=== PATIENT | male | born 1985 | race Caucasian/White ===

== ENCOUNTER 2019-09-05 19:19 | Emergency (ER) | payer OTHER, SELFPAY ==
[2019-09-05 19:45] VITALS: BP 116/71; PULSE 79; RESP 16; TEMP 36.8; O2SAT 99
--- NOTE | 2019-09-05 20:09 | ED.LOWEXIN ---
HPI - Extremity Injury (Lower) General Chief Complaint: Extremity Injury, Lower Stated Complaint: Left knee injury Time Seen by Provider: 09/05/19 19:57 Source: patient and RN notes reviewed Mode of arrival: ambulatory Limitations: no limitations History of Present Illness HPI Narrative: Patient presents today complaining of left knee pain. He injured his knee last night while he was wrestling with his children. States it twisted underneath him. He has intermittent sharp pains to the medial knee with ambulation. At rest he states he is pain-free. Denies numbness or tingling in the leg or foot. He has been taking Tylenol without relief. complaint: knee injury Related Data Allergies Allergy/AdvReac Type Severity Reaction Status Date / Time No Known Allergies Allergy Verified 09/05/19 19:47 Review of Systems Review of Systems: Narrative: CONSTITUTIONAL: Denies body aches, fever, chills, or sweats. EYES: Denies visual changes, redness, or discharge. ENT: Denies rhinorrhea, congestion, sore throat, or otalgia. CARDIOVASCULAR: Denies chest pain, palpitations, or edema. RESPIRATORY: Denies cough or dyspnea. GASTROINTESTINAL: Denies abdominal pain, nausea, vomiting, or diarrhea. GENITOURINARY: Denies dysuria or hematuria. SKIN: Denies rash, itching, or wounds. MUSCULOSKELETAL: Denies back pain, or myalgia.+ Left knee pain NEUROLOGIC: Denies headache, numbness, tingling, or weakness. PSYCH: Denies depression or anxiety. PMFSH Social History Social History Gender identity (if verbalized by the patient): Male Comments At time of signature, I have reviewed and agree with nursing past medical, surgical, social and family history unless otherwise noted. Please see nursing chart for further information. There is no relevant family history pertinent to the presenting complaint Exam Narrative: Exam Narrative: GENERAL: Well-appearing, well-nourished, and in no acute distress. HEAD: Normocephalic, atraumatic. EYES: EOMI. No redness or drainage. Conjunctivae normal. ENT: Mucous membranes pink and moist. NECK: Normal AROM. CHEST: No respiratory distress. EXTREMITIES: Left knee: Point tenderness to the medial joint line. Pain with internal and external rotation. No edema, effusion. No bony tenderness noted to the patella. No tenderness to the patellar tendon. Distal sensation intact. Capillary refill normal. Pedal pulse normal. SKIN: Warm, dry, no rash. NEURO: No focal deficits. Alert and oriented x3. Gait steady. PSYCH: Normal affect. No signs of depression or anxiety. Course Vital Signs Vital signs: Vital Signs Temperature 98.2 F 09/05/19 19:45 Pulse Rate 79 09/05/19 19:45 Respiratory Rate 16 09/05/19 19:45 Blood Pressure 116/71 09/05/19 19:45 Pulse Oximetry 99 09/05/19 19:45 Temperature 98.2 F 09/05/19 19:45 Pulse Rate 79 09/05/19 19:45 Respiratory Rate 16 09/05/19 19:45 Blood Pressure 116/71 09/05/19 19:45 Pulse Oximetry 99 09/05/19 19:45 Review MDM - Extremity Injury (Lower) Differential Diagnosis Differential diagnosis: Likely other (Knee sprain, meniscus tear, ligamental injury) Critical Care Time Critical Care Time Critical Care Time: No Discharge Plan Discharge Clinical Impression: Left knee sprain Qualifiers: Encounter type: initial encounter Involved ligament of knee: unspecified ligament Qualified Code(s): S83.92XA - Sprain of unspecified site of left knee, initial encounter Patient Disposition: Home, Self-Care Condition: Stable Instructions: Knee Sprain (DC) Additional Instructions: Please take the ibuprofen and apply ice at home. Consider an Karri wrap when you are up and walking. Follow-up with your doctor in 1 to 2 weeks if symptoms are not improving. Patient Language: Armenian Prescriptions: New ibuprofen 800 mg tablet 800 mg PO TID Qty: 30 RF: 0 Interventions: Discharge Disposition Last Done: 09/05/19 20:05
== END 2019-09-05 20:05 | disposition home or self-care (01) ==
PROVIDERS: Emergency Provider Nurse Practitioner
DX: S83.92XA Sprain of unspecified site of left knee, initial encounter (principal); X50.9XXA Other and unspecified overexertion or strenuous movements or postures, initial encounter; Y93.83 Activity, rough housing and horseplay
CPT/HCPCS: 99213; G0463

== ENCOUNTER 2019-09-25 13:57 | Outpatient (CLI) | payer OTHER, SELFPAY ==
--- NOTE | ~2019-09-25 | CT_ITS ---
EXAMINATION: CT IAC/mastoids BI wo con EXAM DATE: 09/25/2019 14:41 INDICATION: Chronic mastoiditis, left otorrhea, otitis externa left ear. TECHNIQUE: Spiral CT of the internal auditory canals was performed without contrast. Axial and ankush nal images were reviewed. The dose-length product (DLP) for this examination was 220.56 mGy-cm. The exposure was tailored according to patient size, and iterative reconstruction (ASIR) was used as add itional dose reduction technique. There is no prior study for comparison. FINDINGS: RIGHT side: The middle ear is well aerated. The mastoid air cells are well aerated. The seventh aircraft pneudraulics repairer nial nerve has a normal course. The scutum is intact. The ossicles are normal in appearance. The c ochlea and semicircular canals are normal in appearance. Internal auditory canal is normal in appear ance and symmetric compared to contralateral side. LEFT side: There are surgical changes from mastoidectomy, and the middle ear with ossicular implant, correlate with surgical history. Portions of the mastoidectomy bed have imperceptible wall, possible dehiscence. Small amount of opacity within the mastoidectomy bed, and contiguous to suspected stapedi al implant. Consider correlating this with prior studies at outside institution. IMPRESSION: Left mastoidectomy, middle ear surgical changes, implant with small amount of nonspecific soft tissue, could be granulation tissue. Consider correlating with prior studies. Reviewed, dictated and finalized at location A. IMPRESSION: Left mastoidectomy, middle ear surgical changes, implant with small amount of nonspecific soft tissue, could be granulation tissue. Consider corre lating with prior studies.
== END 2019-09-25 13:58 | disposition home or self-care (01) ==
LOC: ANHIMG 14:05
DX: H70.12 Chronic mastoiditis, left ear (principal); H92.12 Otorrhea, left ear; H60.312 Diffuse otitis externa, left ear; Z98.890 Other specified postprocedural states
CPT/HCPCS: 70480

== ENCOUNTER 2019-12-18 15:08 | Emergency (ER) | payer OTHER, SELFPAY ==
[2019-12-18 15:20] VITALS: BP 114/79; PULSE 74; RESP 16; TEMP 37.2; O2SAT 98
--- NOTE | 2019-12-18 15:36 | ED.EAR ---
HPI - Ear Problem General Chief complaint: Ear Stated complaint: nausea/dizziness/light headed Time Seen by Provider: 12/18/19 15:30 Source: patient and RN notes reviewed Mode of arrival: ambulatory Limitations: no limitations History of Present Illness HPI Narrative: Patient presents today complaining of yellow drainage from the left ear. Reports that he has had chronic drainage from the left ear for many years, but he was last night accompanied by some dizziness, which is not baseline for him. Denies pain in the left ear. Reports he has surgery scheduled for February 05 likely repair his TM that is chronically open. History of cholesteatoma that was removed many years ago. Complaint: ear discharge Related Data Allergies Allergy/AdvReac Type Severity Reaction Status Date / Time No Known Allergies Allergy Verified 09/05/19 19:47 Review of Systems Review of Systems: Narrative: CONSTITUTIONAL: Denies body aches, fever, chills, or sweats. EYES: Denies visual changes, redness, or discharge. ENT: Denies rhinorrhea, congestion, sore throat, or otalgia.+ Left ear drainage CARDIOVASCULAR: Denies chest pain, palpitations, or edema. RESPIRATORY: Denies cough or dyspnea. GASTROINTESTINAL: Denies abdominal pain, nausea, vomiting, or diarrhea. GENITOURINARY: Denies dysuria or hematuria. SKIN: Denies rash, itching, or wounds. MUSCULOSKELETAL: Denies back pain, joint pain, or myalgia. NEUROLOGIC: Denies headache, numbness, tingling, or weakness.+ Dizziness?resolved PSYCH: Denies depression or anxiety. [facility] Past Medical History Medical History (Updated 12/18/19 @ 15:42 by Ebony Sauer, [facility], ) History of cholesteatoma History of chronic ear drainage Social History Social History Gender identity (if verbalized by the patient): Male Comments At time of signature, I have reviewed and agree with nursing past medical, surgical, social and family history unless otherwise noted. Please see nursing chart for further information. There is no relevant family history pertinent to the presenting complaint Exam Narrative: Exam Narrative: GENERAL: Well-appearing, well-nourished, and in no acute distress. HEAD: Normocephalic, atraumatic. EYES: EOMI. No redness or drainage. Conjunctivae normal. ENT: Mucous membranes pink and moist. Nares clear. No rhinorrhea. Right TM normal. Left TM is normal in color, but the superior portion is missing. No current active drainage noted. No moistness in the ear canal noted. Throat normal. Uvula midline. NECK: Normal AROM. Supple. EXTREMITIES: Normal range of motion. No edema. SKIN: Warm, dry, no rash. Capillary refill normal. Normal skin turgor. NEURO: No focal deficits. Alert and oriented x3. Gait steady. PSYCH: Normal affect. No signs of depression or anxiety. Course Vital Signs Vital signs: Vital Signs Temperature 98.9 F 12/18/19 15:20 Pulse Rate 74 12/18/19 15:20 Respiratory Rate 16 12/18/19 15:20 Blood Pressure 114/79 12/18/19 15:20 Pulse Oximetry 98 12/18/19 15:20 Temperature 98.9 F 12/18/19 15:20 Pulse Rate 74 12/18/19 15:20 Respiratory Rate 16 12/18/19 15:20 Blood Pressure 114/79 12/18/19 15:20 Pulse Oximetry 98 12/18/19 15:20 Reviewed Medical Decision Making Differential Diagnosis Differential Diagnosis: Otitis media, otitis externa, serous otitis, cellulitis Vital Signs Vital Signs: Vital Signs Temperature 98.9 F 12/18/19 15:20 Pulse Rate 74 12/18/19 15:20 Respiratory Rate 16 12/18/19 15:20 Blood Pressure 114/79 12/18/19 15:20 Pulse Oximetry 98 12/18/19 15:20 Temperature 98.9 F 12/18/19 15:20 Pulse Rate 74 12/18/19 15:20 Respiratory Rate 16 12/18/19 15:20 Blood Pressure 114/79 12/18/19 15:20 Pulse Oximetry 98 12/18/19 15:20 Critical Care Time Critical Care Time Critical Care Time: No Discharge Plan Discharge Clinical Impression: Drainage from ear, left Patient Dis
== END 2019-12-18 15:41 | disposition home or self-care (01) ==
PROVIDERS: Emergency Provider Nurse Practitioner
DX: H92.12 Otorrhea, left ear (principal)
CPT/HCPCS: 99213; G0463

== ENCOUNTER 2021-01-29 17:48 | Emergency (ER) | payer BC, SELFPAY ==
[2021-01-29 18:02] VITALS: BP 129/75; PULSE 79; RESP 16; TEMP 36.4; O2SAT 100
--- NOTE | 2021-01-29 19:11 | ED.URI ---
HPI - URI/Sore Throat General Chief Complaint: Upper Respiratory Infection Stated Complaint: sore throat History of Present Illness HPI Narrative: This is a 35 year old male that has a sore throat that started yesterday and he has been tired and wanted to see if there was strep. 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 Related Data Allergies Allergy/AdvReac Type Severity Reaction Status Date / Time No Known Allergies Allergy Verified 01/29/21 18:08 Review of Systems Review of Systems: Narrative: CONSTITUTIONAL: Denies fever, chills, or sweats. EYES: Denies visual changes, redness, or discharge. ENT: Reports rhinorrhea, congestion, sore throat, or otalgia. CARDIOVASCULAR:Denies chest pain, palpitations, or edema. RESPIRATORY: Denies cough or dyspnea. GASTROINTESTINAL: Denies abdominal pain, nausea, vomiting, or diarrhea. GENITOURINARY: Denies dysuria or hematuria. SKIN:[Denies rash or itching. MUSCULOSKELETAL:Denies back pain, joint pain, or myalgia. NEUROLOGIC: Denies headache, numbness, or weakness. PSYCHIATRIC:Denies anxiety or depression PMFSH Past Medical History Medical History (Updated 01/29/21 @ 19:12 by Young Coffman NP) History of cholesteatoma History of chronic ear drainage Social History Social History Gender identity (if verbalized by the patient): Male Comments At time as signature, I have reviewed and agree with nursing past medical, social, surgical and family history. Please see nursing chart for further information. There is no relevant family history pertinent to the presenting complaint. Exam Narrative: Exam Narrative: GENERAL: Ill-appearing, well-nourished, and in no acute distress. HEAD:Normocephalic, atraumatic. EYES: PERRLA and EOMI. ENT: Nares clear, pharyngeal erythema geographical tongue, cochlear implant in the left ear NECK: Supple. CHEST: Clear to auscultation. No respiratory distress. HEART: Regular rate and rhythm. . Normal peripheral pulses. ABDOMEN: Soft, nontender, nondistended, normal active bowel sounds. EXTREMITIES: Normal range of motion. No edema. SKIN: Warm, dry, no rash. NEURO: No focal deficits. Alert and oriented x3. 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 Strep negative culture sent, rapid Covid negative PCR sent Vital Signs Vital signs: Vital Signs Temperature 97.5 F L 01/29/21 18:02 Pulse Rate 79 01/29/21 18:02 Respiratory Rate 16 01/29/21 18:02 Blood Pressure 129/75 01/29/21 18:02 Pulse Oximetry 100 01/29/21 18:02 Temperature 97.5 F L 01/29/21 18:02 Pulse Rate 79 01/29/21 18:02 Respiratory Rate 16 01/29/21 18:02 Blood Pressure 129/75 01/29/21 18:02 Pulse Oximetry 100 01/29/21 18:02 MDM - URI/Sore Throat Differential Diagnosis Differential diagnosis: Likely upper respiratory infection, croup, viral infection, bronchitis and pharyngitis Lab Data Labs: Lab Results 01/29/21 Range/Units 18:04 POC SARS CoV-2 Ag Negative (Negative) Strep Screen Presumptive Negative *(Reference Range: Negative)* Discharge Plan Discharge Clinical Impression: Viral infection, Geographical tongue Pharyngitis Qualifiers: Pharyngitis/tonsillitis etiology: unspecified etiology Qualified Code(s): J02.9 - Acute pharyngitis, unspecified Patient Disposition: Home, Self-Care Condition: Stable Instructions: Antibiotic Form, Pharyngitis (ED), Geographic Tongue (ED) Additional Instructions: FOR THE PATIENT AND HOUSEHOLD MEMBERS: Self-quarantine for at least 7 days from symptom onset plus 3 days after being symptom free. When self-quarantined, stay home and practice infection prevention practices including: ? Stay home when you are sick (fever, cough, upper respiratory infection symptoms) ? Wash your hands often with soap and water for 20 seconds or use an alcohol-based hand senior recruiter, espec
[2021-01-30 16:56] LABS: SARS-CoV-2 RNA PCR Negative
== END 2021-01-29 19:18 | disposition home or self-care (01) ==
PROVIDERS: Emergency Provider Nurse Practitioner Family
DX: B34.9 Viral infection, unspecified (principal); K14.1 Geographic tongue; J02.9 Acute pharyngitis, unspecified; Z20.822 Contact with and (suspected) exposure to COVID-19
CPT/HCPCS: 87081; 87426; 87880; 99213; C9803; G0463; U0003; U0005

== ENCOUNTER 2021-03-30 11:27 | Emergency (ER) | payer BC, SELFPAY ==
[2021-03-30 11:39] VITALS: BP 139/84; PULSE 73; RESP 16; TEMP 36.5; O2SAT 99
--- NOTE | 2021-03-30 12:43 | ED.URI ---
HPI - URI/Sore Throat General Chief Complaint: Upper Respiratory Infection Stated Complaint: Loss of taste and smell Time Seen by Provider: 03/30/21 12:34 Source: patient and RN notes reviewed Mode of arrival: ambulatory Limitations: no limitations History of Present Illness HPI Narrative: Patient presents today complaining of waking up at 1900 last night with absent taste and smell, headache, and some fatigue. Denies any additional symptoms to include fever, cough, congestion, rhinorrhea, sore throat, nausea or vomiting, chest pain or shortness of breath. Boss is positive for COVID-19, and patient wanted to come in for COVID-19 test. He has been vaccinated. He has tried no [id number] treatment prior to arrival. MD elicited complaint: other (Loss of taste and smell) Related Data Home Medications Medication Instructions Recorded Confirmed No Home Medications 03/30/21 03/30/21 Allergies Allergy/AdvReac Type Severity Reaction Status Date / Time No Known Allergies Allergy Verified 03/30/21 11:34 Review of Systems Review of Systems: CONSTITUTIONAL: Denies body aches, fever, chills, or sweats.+ Fatigue EYES: Denies visual changes, redness, or discharge. ENT: Denies rhinorrhea, congestion, sore throat, or otalgia.+ Loss of taste and smell CARDIOVASCULAR: Denies chest pain, palpitations, or edema. RESPIRATORY: Denies cough or dyspnea. GASTROINTESTINAL: Denies abdominal pain, nausea, vomiting, or diarrhea. GENITOURINARY: Denies dysuria or hematuria. SKIN: Denies rash, itching, or wounds. MUSCULOSKELETAL: Denies back pain, joint pain, or myalgia. NEUROLOGIC: Denies numbness, tingling, or weakness.+ Headache PSYCH: Denies depression or anxiety. [facility] Past Medical History Medical History History of cholesteatoma History of chronic ear drainage Social History Social History Gender identity (if verbalized by the patient): Male Comments At time of signature, I have reviewed and agree with nursing past medical, surgical, social and family history unless otherwise noted. Please see nursing chart for further information. There is no relevant family history pertinent to the presenting complaint Exam Narrative: GENERAL: Well-appearing, well-nourished, and in no acute distress. HEAD: Normocephalic, atraumatic. EYES: EOMI. No redness or drainage. Conjunctivae normal. ENT: Mucous membranes pink and moist. Nares clear. No rhinorrhea. Right TM normal. Left TM unable to be visualized due to previous ear surgeries. Throat normal. Uvula midline. NECK: Normal AROM. Supple. No lymphadenopathy. CHEST: No respiratory distress. Clear to auscultation. HEART: Regular rate and rhythm. No murmur appreciated. Normal peripheral pulses. EXTREMITIES: Normal range of motion. No edema. SKIN: Warm, dry, no rash. Capillary refill normal. Normal skin turgor. NEURO: No focal deficits. Alert and oriented x3. Gait steady. PSYCH: Normal affect. No signs of depression or anxiety. Course Vital Signs Vital signs: Vital Signs Temperature 97.7 F 03/30/21 11:39 Pulse Rate 73 03/30/21 11:39 Respiratory Rate 16 03/30/21 11:39 Blood Pressure 139/84 03/30/21 11:39 Pulse Oximetry 99 03/30/21 11:39 Temperature 97.7 F 03/30/21 11:39 Pulse Rate 73 03/30/21 11:39 Respiratory Rate 16 03/30/21 11:39 Blood Pressure 139/84 03/30/21 11:39 Pulse Oximetry 99 03/30/21 11:39 Reviewed. Pt has been instructed to follow up with his PCP regarding his elevated blood pressure today. MDM - URI/Sore Throat Differential Diagnosis Differential diagnosis: Likely upper respiratory infection, sinusitis, viral infection and other (COVID-19) Critical Care Time Critical Care Time Critical Care Time: No Discharge Plan Discharge Clinical Impression: Dysgeusia, Anosmia Patient Disposition: Home, Se
[2021-03-31 19:00] LABS: SARS-CoV-2 RNA PCR Negative
== END 2021-03-30 12:55 | disposition home or self-care (01) ==
PROVIDERS: Emergency Provider Nurse Practitioner
DX: R43.2 Parageusia (principal); R43.0 Anosmia; Z20.822 Contact with and (suspected) exposure to COVID-19
CPT/HCPCS: 99213; C9803; G0463; U0003; U0005

== ENCOUNTER 2022-05-29 16:27 | Emergency (ER) | payer OTHER, SELFPAY ==
[2022-05-29 16:40] VITALS: BP 146/77; PULSE 80; RESP 16; TEMP 37.4; O2SAT 98
--- NOTE | 2022-05-29 17:04 | ED.EAR ---
HPI - Ear Problem General Chief complaint: Ear Stated complaint: Trouble hearing from right ear Time Seen by Provider: 05/29/22 17:04 Source: patient, RN notes reviewed and old records reviewed Mode of arrival: ambulatory Limitations: no limitations History of Present Illness HPI Narrative: 37-year-old male presents to the [facility] with complaints of trouble hearing right ear, patient states symptoms started this morning. Denies any other complaints No pain. Patient reports cochlear implant. Has an appointment in 10 days on the 08 of June with his ENT provider. Related Data Home Medications Medication Instructions Recorded Confirmed No Home Medications 03/30/21 05/29/22 Allergies Allergy/AdvReac Type Severity Reaction Status Date / Time No Known Allergies Allergy Verified 05/29/22 16:45 Review of Systems Review of Systems: All systems reviewed & are unremarkable except as noted in HPI and below Constitutional: Constitutional: Reports no additional constitutional complaints, Denies chills and Denies fever(s) Eyes: Eyes: Reports no additional eye complaints ENT: Reports as per HPI Cardiovascular: Cardiovascular: Reports no additional cardiovascular complaints Respiratory: Respiratory: Reports no additional respiratory complaints Gastrointestinal: Gastrointestinal: Reports no additional gastrointestinal complaints Musculoskeletal: Musculoskeletal: Reports no additional musculoskeletal complaints Integumentary/Breasts: Skin/Breast: Reports system reviewed and no additional complaints, except as docu Neurologic: Reports system reviewed and no additional complaints, except as documented Psychiatric: Psychiatric: Reports no additional psychiatric complaints Allergic/Immunologic: Allergic/Immunologic: Reports no additional allergic/immunologic complaints PMFSH Past Medical History Medical History History of cholesteatoma History of chronic ear drainage Social History Social History Gender identity (if verbalized by the patient): Male Comments At the time of my signature, I reviewed and agree with the nursing past medical, surgical, social, and family history. There is no relevant family history pertinent to the patient complaint. Exam Const: General: healthy appearing, comfortable, no acute distress, well developed, alert and well nourished Nutritional Appearance: well nourished Orientation/consciousness: patient oriented x3 Limitations: no limitations HENMT: Head: normal to inspection Ears: external ears normal, TM's normal bilaterally (Right) and EAC's normal (Right) Face/Nose/Sinus: Normal external nose present Face and sinus: normal facial exam Mouth: Yes Normal oral and palatal mucosa present, Yes lip normal and Yes moist mucous membranes Throat: posterior oropharynx normal and uvula midline Other: Cochlear implant to the left Eyes: General: appearance normal, both eyes and all related structures Conjunctivae: conjunctivae normal Pupils: Equal, round and reactive pupils present Neck: Neck: normal visual inspection, full ROM, no lymphadenopathy and no meningeal signs Chest: Chest palpation & inspection: normal inspection of the chest Resp: Effort & Inspection: normal respiratory effort and no use of accessory muscles Auscultation: clear to auscultation bilaterally, no crackles, no rales, no rhonchi and no wheezes Cardio: Rate: regular rate Rhythm: regular rhythm Back/Spine/Pelvis: Cervical Spine: cervical ROM normal and No Cervical spine tenderness Thoracic/Lumbar Spine: thoracic and lumbar spine normal to inspection and thoraco-lumbar ROM normal Skin: General skin exam: normal color Rashes: no rashes Wounds: no wounds Neuro: General: patient oriented x3, moves all extremities, no meningeal signs and no focal motor deficits Cranial nerves: Yes Equal, routobias
== END 2022-05-29 17:17 | disposition home or self-care (01) ==
PROVIDERS: Emergency Provider Nurse Practitioner
DX: H91.91 Unspecified hearing loss, right ear (principal); Z96.21 Cochlear implant status
CPT/HCPCS: 99213; G0463

== ENCOUNTER 2022-10-16 22:38 | Emergency (ER) | payer OTHER, SELFPAY ==
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
[2022-10-16 22:41] VITALS: BP 127/79; PULSE 94; RESP 20; TEMP 37; O2SAT 99
[2022-10-17 01:03] VITALS: BP 128/76; PULSE 74; RESP 18; O2SAT 100
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
[2022-10-17] MEDS: TETANUS,DIPHTHERIA,AC PERTUSSIS ADULT (0.5 ML) BOOSTRIX IM (01:35)
[2022-10-17 01:43] VITALS: BP 130/77; PULSE 77; RESP 16; O2SAT 99
== END 2022-10-17 01:44 | disposition home or self-care (01) ==
PROVIDERS: Emergency Provider Physician Assistant
DX: S63.501A Unspecified sprain of right wrist, initial encounter (principal); S66.911A Strain of unspecified muscle, fascia and tendon at wrist and hand level, right hand, initial encounter; S80.211A Abrasion, right knee, initial encounter; V28.09XA Other motorcycle driver injured in noncollision transport accident in nontraffic accident, initial encounter
CPT/HCPCS: 73110; 90471; 90715; 99283

== ENCOUNTER 2023-05-20 15:42 | Emergency (ER) | payer BC, SELFPAY ==
--- NOTE | ~2023-05-20 | XR_ITS ---
EXAMINATION: XR chest 2V DATE: 05/20/2023 16:17 INDICATION: 2 days of cough and fever TECHNIQUE: PA and lateral views of the chest were obtained. COMPARISON: None FINDINGS: The lungs are clear with no focal airspace opacities, pulmonary edema, pleural effusion or pneumothor ax. The cardiomediastinal silhouette is normal. Visualized bones and soft tissues are unremarkable. IMPRESSION: 1. Normal chest radiograph. Reviewed, dictated and finalized at location A. 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 Normal chest radiograph.
--- NOTE | 2023-05-20 15:59 | ED.URI ---
HPI - URI/Sore Throat General Chief Complaint: Upper Respiratory Infection Stated Complaint: cough,light headed Time Seen by Provider: 05/20/23 16:15 Source: patient, RN notes reviewed and old records reviewed Mode of arrival: ambulatory Limitations: no limitations History of Present Illness HPI Narrative: 38-year-old male presents to the [facility] with cough, fever, sore throat since yesterday. States that he did take a COVID test yesterday when his symptoms started. Did take a dose of Delsym. 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 Treatments prior to arrival: cold medicine Related Data Allergies Allergy/AdvReac Type Severity Reaction Status Date / Time No Known Allergies Allergy Verified 05/20/23 16:00 Review of Systems Review of Systems: All systems reviewed & are unremarkable except as noted in HPI and below Constitutional: Constitutional: Reports no additional constitutional complaints Eyes: Eyes: Reports no additional eye complaints ENT: Reports as per HPI and Reports sore throat Cardiovascular: Cardiovascular: Reports no additional cardiovascular complaints, Denies chest pain and Denies dyspnea Respiratory: Respiratory: Reports as per HPI, Reports no additional respiratory complaints, Denies chest congestion, Reports cough and Denies dyspnea Gastrointestinal: Gastrointestinal: Reports no additional gastrointestinal complaints, Denies abdominal pain, Denies nausea and Denies vomiting Musculoskeletal: Musculoskeletal: Reports no additional musculoskeletal complaints Integumentary/Breasts: Skin/Breast: Reports system reviewed and no additional complaints, except as docu Neurologic: Reports system reviewed and no additional complaints, except as documented Psychiatric: Psychiatric: Reports no additional psychiatric complaints Allergic/Immunologic: Allergic/Immunologic: Reports no additional allergic/immunologic complaints PMFSH Past Medical History Medical History History of cholesteatoma History of chronic ear drainage Social History Social History Gender identity (if verbalized by the patient): Male Comments At the time of my signature, I reviewed and agree with the nursing past medical, surgical, social, and family history. There is no relevant family history pertinent to the patient complaint. Exam Const: General: cooperative, healthy appearing, comfortable, no acute distress, well developed, alert and well nourished Nutritional Appearance: well nourished Orientation/consciousness: patient oriented x3 Limitations: no limitations HENMT: Head: normal to inspection Ears: hearing grossly normal bilaterally, external ears normal, TM normal on the right and other (Cochlear implant left) Face/Nose/Sinus: Normal external nose present, Normal nares present, Normal nasal mucous membranes and turbinates present, normal facial exam and face symmetric Face and sinus: normal facial exam and face symmetric Mouth: Yes Normal oral and palatal mucosa present, Yes lip normal and Yes moist mucous membranes Throat: posterior oropharynx normal, uvula midline and postnasal drainage Eyes: General: appearance normal, both eyes and all related structures Alignment and Position: alignment normal Periorbital: periorbital findings normal Pupils: Equal, round and reactive pupils present EOM: EOMs intact bilaterally Neck: Neck: normal visual inspection, full ROM, no lymphadenopathy and no meningeal signs Chest: Chest palpation & inspection: normal inspection of the chest Resp: Effort & Inspection: normal respiratory effort and able to speak in complete sentences Auscultation: clear to auscultation bilaterally, no crackles, no rales, no rhonchi and no wheezes Cardio: Rate: regular rate Rhythm: regular rhythm Back/Spine/Pelvis: Cervical Spine: cervical ROM normal Skin: Ge
[2023-05-20 16:00] VITALS: BP 135/78; PULSE 98; RESP 16; TEMP 38.8; O2SAT 99
[2023-05-20] MEDS: ACETAMINOPHEN 500 MG TABLET 1000 MG PO (16:07)
[2023-05-20 17:11] VITALS: TEMP 37.4
== END 2023-05-20 17:17 | disposition home or self-care (01) ==
PROVIDERS: Emergency Provider Nurse Practitioner
DX: B34.9 Viral infection, unspecified (principal); Z20.822 Contact with and (suspected) exposure to COVID-19
CPT/HCPCS: 71046; 87081; 87426; 87804; 87880; 99213; A9270; C9803; G0463

== ENCOUNTER 2024-03-06 14:16 | Emergency (ER) | payer BC, SELFPAY ==
[2024-03-06 14:30] VITALS: BP 140/87; PULSE 101; RESP 20; TEMP 37.2; O2SAT 98
--- NOTE | 2024-03-06 15:43 | ED.SKABFB ---
HPI - Skin/Abscess/Foreign Bdy General Chief complaint: Skin/Abscess/Foreign Body Stated complaint: Right Arm Foreign Body Object Time Seen by Provider: 03/06/24 15:42 Source: patient, RN notes reviewed and old records reviewed Mode of arrival: ambulatory Limitations: no limitations History of Present Illness HPI narrative: 38-year-old male presents to the [facility] with redness to an injection site. States he gets weekly testosterone shots. States it was put lower than the normal muscle it is normally gets injected in Redness, warm to touch. No swelling noted. Tender to touch Has full range of motion of the shoulder, right Related Data Home Medications Medication Instructions Recorded Confirmed testosterone 03/06/24 Allergies Allergy/AdvReac Type Severity Reaction Status Date / Time No Known Allergies Allergy Verified 03/06/24 14:29 Review of Systems Review of Systems: All systems reviewed & are unremarkable except as noted in HPI and below Constitutional: Constitutional: Reports no additional constitutional complaints Eyes: Eyes: Reports no additional eye complaints ENT: Reports system reviewed and no additional complaints, except as documented Cardiovascular: Cardiovascular: Reports no additional cardiovascular complaints, Denies chest pain and Denies dyspnea Respiratory: Respiratory: Reports no additional respiratory complaints, Denies chest congestion, Denies cough and Denies dyspnea Gastrointestinal: Gastrointestinal: Reports no additional gastrointestinal complaints, Denies abdominal pain, Denies nausea and Denies vomiting Musculoskeletal: Musculoskeletal: Reports no additional musculoskeletal complaints Integumentary/Breasts: Skin/Breast: Reports as per HPI Neurologic: Reports system reviewed and no additional complaints, except as documented Psychiatric: Psychiatric: Reports no additional psychiatric complaints Allergic/Immunologic: Allergic/Immunologic: Reports no additional allergic/immunologic complaints PMFSH Past Medical History Medical History History of cholesteatoma History of chronic ear drainage Social History Social History Gender identity (if verbalized by the patient): Male Comments At the time of my signature, I reviewed and agree with the nursing past medical, surgical, social, and family history. There is no relevant family history pertinent to the patient complaint. Exam Const: General: cooperative, healthy appearing, comfortable, no acute distress, well developed, alert and well nourished Nutritional Appearance: well nourished Orientation/consciousness: patient oriented x3 Limitations: no limitations HENMT: Head: normal to inspection Ears: hearing grossly normal bilaterally and external ears normal Face/Nose/Sinus: Normal external nose present, Normal nares present, Normal nasal mucous membranes and turbinates present, normal facial exam and face symmetric Face and sinus: normal facial exam and face symmetric Eyes: General: appearance normal, both eyes and all related structures Alignment and Position: alignment normal Periorbital: periorbital findings normal Pupils: Equal, round and reactive pupils present EOM: EOMs intact bilaterally Neck: Neck: normal visual inspection, full ROM, no lymphadenopathy and no meningeal signs Chest: Chest palpation & inspection: normal inspection of the chest Resp: Effort & Inspection: normal respiratory effort and able to speak in complete sentences Cardio: Rate: regular rate Skin: General skin exam: normal color and no rashes or lesions noted Lesions: no lesions Rashes: no rashes Trauma: no lacerations or abrasions Wounds: no wounds Full body images: 1. Lateral aspect erythema, warm to touch, tender without swelling measuring 6 cm x 8 cm below deltoid Neuro: General: patient oriented x3, gait normal,
== END 2024-03-06 15:55 | disposition home or self-care (01) ==
PROVIDERS: Emergency Provider Nurse Practitioner
DX: T80.89XA Other complications following infusion, transfusion and therapeutic injection, initial encounter (principal); L53.9 Erythematous condition, unspecified
CPT/HCPCS: 99213; G0463

== ENCOUNTER 2024-04-10 13:20 | Emergency (ER) | payer BC, SELFPAY ==
--- NOTE | ~2024-04-10 | XR_ITS ---
Clinical Indication: Shortness of breath PA and lateral views of the chest: Comparison: 05/20/2023 Findings: The lungs are clear, without evidence of focal consolidation or pleural effusion. Cardiome diastinal silhouette is within normal limits. Bones and soft tissues are unremarkable. Impression: Normal chest. Reviewed, dictated and finalized at location . Impression: Normal chest.
[2024-04-10 13:31] VITALS: BP 135/71; PULSE 87; RESP 16; TEMP 37.7; O2SAT 99
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
== END 2024-04-10 14:30 | disposition home or self-care (01) ==
PROVIDERS: Emergency Provider Nurse Practitioner
DX: J40 Bronchitis, not specified as acute or chronic (principal)
CPT/HCPCS: 71046; 99213; G0463

== ENCOUNTER 2024-09-22 17:46 | Emergency (ER) | payer BC, SELFPAY ==
--- NOTE | 2024-09-22 17:46 | ED_ITS ---
HPI - URI/Sore Throat General Chief Complaint: Upper Respiratory Infection Stated Complaint: URI Time Seen by Provider: 09/22/24 17:46 Source: patient Mode of arrival: ambulatory Limitations: no limitations History of Present Illness HPI Narrative: Ashu is a 39-year-old male patient presenting to the clinic today with complaints of cough, runny nose, sore throat congestion, fever, mild shortness of breath, and headache. He reports his symptoms have been going on for 3 days. Does not know how high his temperature has gotten but he has 100.6? F clinic today. Denies any chest pain. MD elicited complaint: sore throat and nasal congestion Related Data Home Medications ?Medication ?Instructions ?Recorded ?Confirmed ?Last Taken ?Type testosterone 1 ml IM WEEKLY 03/06/24 04/10/24 Unknown History Allergies Allergy/AdvReac Type Severity Reaction Status Date / Time No Known Allergies Allergy Verified 09/22/24 17:47 Review of Systems Review of Systems: Pertinent positives per HPI. Patient denies any rash, visual changes, dizziness, shortness of breath, chest pain, palpitations, nausea, vomiting, diarrhea, constipation, abdominal pain, or any urinary issues. [facility] Past Medical History Medical History History of chronic ear drainage History of cholesteatoma Social History Social History Gender identity (if verbalized by the patient): Male Comments At the time of my signature, I reviewed and agree with the nursing past medical, surgical, social, and family history. There is no relevant family history pertinent to the patient complaint. Exam Narrative: General: Well-developed, well nourished, in no apparent distress Head: Normocephalic, atraumatic Eyes: Pupils equally round and reactive to light bilaterally, EOM intact, sclera and conjunctive clear, no discharge, lids normal Ears: TMs intact and clear, ear canals clear, no drainage, grossly hearing normal. Nose: Nares patent, clear nasal discharge, no inflammation, no sinus tenderness. Mouth: Oral pharynx without lesions or masses, good dentition, MMM. Postnasal drip Neck: Supple, trachea midline, no enlargement of anterior or posterior cervical nodes, no thyroid masses or goiter palpable. Cardio: Regular rate and rhythm, s1 and s2 normal, no murmur appreciated. Resp: Clear to auscultation bilaterally, no rhonchi, rales, wheezing or rubs Course Course Emergency Course: Portions of this record may have been created with voice recognition software. Level of Care: Express Care Visit Vital Signs Vital signs: Vital Signs Temperature 38.1 C H 09/22/24 17:53 Pulse Rate 107 H 09/22/24 17:53 Respiratory Rate 19 09/22/24 17:53 Blood Pressure 181/63 H 09/22/24 17:53 Pulse Oximetry 98 09/22/24 17:53 Oxygen Delivery Room Air 09/22/24 17:53 Temperature 38.1 C H 09/22/24 17:53 Pulse Rate 107 H 09/22/24 17:53 Respiratory Rate 19 09/22/24 17:53 Blood Pressure 181/63 H 09/22/24 17:53 Pulse Oximetry 98 09/22/24 17:53 Oxygen Delivery Room Air 09/22/24 17:53 Vital signs reviewed MDM - URI/Sore Throat MDM Narrative Medical decision making narrative: At the time of visit patient is resting comfortably on the exam table. Patient appears to be nontoxic. Labs: Influenza and COVID testing were negative in the clinic today. Plan: No sign of bacterial infection and lung sounds are clear in the clinic today. I suspect patient has URI with cough congestion/viral syndrome. Patient's blood pressure was elevated in the clinic today. Supportive measures were discussed with the patient and they voiced understanding discharge instructions and agrees to treatment plan. Return precautions reviewed Differential Diagnosis Differential diagnosis: Likely upper respiratory infection, otitis media, sinusitis, viral infection, bronchitis, influenza, pharyngitis and other (COVID) Lab Data Labs: Lab Results 09/22/24 Range/Units 17:55 POC Influenza A Ag Negative (Negative) POC Influenza B Ag Negative (Negative) POC SARS CoV-2 Ag Negative (Negative) Discharge Plan Discharge Clinical Impression: URI with cough and congestion Patient Disposition: Home, Self-Care Condition: Stable Instructions: Antibiotic Form, Cold Symptoms (ED) Additional Instructions: No sign of bacterial infection in the clinic and your lungs are clear May take Coricidin HBP for cold/flu symptoms Increase fluids and stay well hydrated Tylenol/motrin for pain/fever Flonase and OTC antihistamines as directed Vicks vapor rub to open sinuses Sinus rinses for congestion Cepacol spray, cough drops, throat lozenges, warm tea with honey/lemon, gargle salt water to soothe throat BRAT diet for diarrhea Clear liquids x 24 hours then advance as tolerated for nausea/vomiting Go to the ED if you develop a worsening in your condition- high fever not controlled by Tylenol or Motrin, dehydration, weakness, lethargy, shortness of breath, or chest pain. Follow up with your PCP in 3-5 days if symptoms persist. You have an elevated blood pressure in the clinic today and I recommend follow- up with primary care physician to have this reevaluated within the next week if symptoms persist. [place] [employer] guidelines state that normal blood pressure is 120/80 or less. Anything over 120/80 is considered elevated and should be monitored. You may need to decrease you salt intake and eat a heart healthy diet to help lower you blood pressure, other treatments would include decreasing stress, weight loss, stop caffeine, and quit smoking. Your primary care provider can determine whether you need to start antihypertensive medications. Untreated high blood pressure can cause dizziness, headaches, visual changes, blindness, kidney failure, stroke, heart attack, and male impotence. Patient Language: Honduran Prescriptions: No Action testosterone 1 ml IM WEEKLY Follow-up/Referrals: UNKNOWN,DOCTOR [Primary Care Provider] - Stand Alone Forms: Work/School Release IP Time of Disposition: 18:15 Quality NIHSS Nursing Documentation ED NIHSS nursing documentation: reviewed/agree
[2024-09-22 17:53] VITALS: BP 181/63; PULSE 107; RESP 19; TEMP 38.1; O2SAT 98
[2024-09-22 18:18] LABS: EDCOVIDSCREEN Negative (Negative); EDINFLUASCREEN Negative (Negative); EDINFLUBSCREEN Negative (Negative)
== END 2024-09-22 18:24 | disposition home or self-care (01) ==
PROVIDERS: Emergency Provider Nurse Practitioner Family
DX: J06.9 Acute upper respiratory infection, unspecified (principal); R05.9 Cough, unspecified; Z20.822 Contact with and (suspected) exposure to COVID-19
CPT/HCPCS: 87426; 87804; 99212; 99213; G0463

== ENCOUNTER 2024-09-25 12:41 | Emergency (ER) | payer BC, SELFPAY ==
[2024-09-25 12:48] VITALS: BP 127/66; PULSE 68; RESP 16; TEMP 36.4; O2SAT 100
--- NOTE | 2024-09-25 13:13 | ED_ITS ---
HPI - URI/Sore Throat General Chief Complaint: Upper Respiratory Infection Stated Complaint: dizzy,pale Time Seen by Provider: 09/25/24 12:43 Source: patient Mode of arrival: ambulatory Limitations: no limitations History of Present Illness HPI Narrative: Patient is a 39-year-old male who presents with productive cough for 1 week, intermittent dizziness and fatigue since grown back to work today. Patient was seen here 3 days ago and swab negative for COVID in flu. Patient had fever for 5 days but none in the last 36 hours. Denies any chills, nausea, vomiting, diarrhea. Related Data Home Medications ?Medication ?Instructions ?Recorded ?Confirmed ?Last Taken ?Type testosterone 1 ml IM WEEKLY 03/06/24 04/10/24 Unknown History Allergies Allergy/AdvReac Type Severity Reaction Status Date / Time No Known Allergies Allergy Verified 09/22/24 17:47 Review of Systems Review of Systems: All systems reviewed & are unremarkable except as noted in HPI and below Constitutional: Constitutional: Denies chills, Reports fatigue, Denies fever(s), Denies headache(s), Denies malaise and Denies weakness Eyes: Eyes: Denies blurry vision, Denies itchy eyes and Denies loss of vision ENT: Denies otalgia, Denies headache(s), Denies nasal congestion, Denies sinus pain and Denies sore throat Cardiovascular: Cardiovascular: Denies chest pain, Denies irregular heart rhythm and Denies dyspnea Respiratory: Respiratory: Reports cough and Denies dyspnea Gastrointestinal: Gastrointestinal: Denies abdominal pain, Denies diarrhea, Denies nausea and Denies vomiting Musculoskeletal: Musculoskeletal: Denies back pain, Denies myalgias and Denies arthralgias Integumentary/Breasts: Skin/Breast: Denies pruritus and Denies rash Neurologic: Reports dizziness, Denies headache(s), Denies loss of vision and Denies weakness Psychiatric: Psychiatric: Reports no additional psychiatric complaints Endocrine: Endocrine: Denies fatigue Allergic/Immunologic: Allergic/Immunologic: Denies itchy eyes PMFSH Past Medical History Medical History History of chronic ear drainage History of cholesteatoma Social History Social History Gender identity (if verbalized by the patient): Male Comments At time of signature, agree with nursing past medical, surgical, social and family history. There is no relevant family history pertinent to the presenting complaint. Exam Const: General: cooperative, healthy appearing, comfortable, no acute distress and well nourished Nutritional Appearance: well nourished Orientation/consciousness: patient oriented x3 Limitations: no limitations HENMT: Head: normal to inspection, normocephalic and atraumatic Ears: hearing grossly normal bilaterally, external ears normal, TM's normal bilaterally, EAC's normal and no periauricular adenopathy Face/Nose/Sinus: Normal external nose present, Abnormal mucous membranes and turbinates present erythematous bilateral and diffuse, normal facial exam, sinuses nontender and face symmetric Face and sinus: normal facial exam, sinuses nontender and face symmetric Mouth: Yes Normal oral and palatal mucosa present, Yes lip normal, Yes tongue normal, Yes Normal salivary glands and ducts present, Yes oropharynx normal and Yes moist mucous membranes Teeth and gingiva: dentition normal Throat: posterior oropharynx normal, tonsils normal and uvula midline Eyes: General: appearance normal, both eyes and all related structures Alignment and Position: alignment normal and position normal Periorbital: periorbital findings normal Eyelids: eyelids normal Pupils: Equal, round and reactive pupils present Neck: Neck: normal visual inspection, full ROM, no lymphadenopathy and supple Chest: Chest palpation & inspection: normal inspection of the chest and normal palpation of entire chest wall Resp: Effort & Inspection: normal respiratory effort, able to speak in complete sentences and Actively coughing productive Auscultation: clear to auscultation bilaterally, no crackles, no rales, no rhonchi and no wheezes Cardio: Rate: regular rate Rhythm: regular rhythm Heart sounds: S1 normal heart sound present and S2 normal heart sound present GI: Inspection: normal to inspection Skin: General skin exam: normal color and no rashes or lesions noted Neuro: General: patient oriented x3 and moves all extremities Cranial ner ves: Yes Equal, round and reactive pupils present Speech: normal speech Gait exam (Neuro): Normal gait present Extrem: General: normal to inspection, full ROM and no edema Psych: Appearance: grossly normal and well kempt Mental Status: mental status grossly normal Speech and movement: Normal speech and movement present Affect: normal affect Attitude: cooperative Thought process: Normal thought process present Course Course Emergency Course: Discharge instructions reviewed with patient, as well as provided in writing per nursing staff. The instructions also include specific and strict return/GO TO THE ER as well as f/u information. All questions have been answered, and the patient deny any further questions with discharge and discharge plan. Portions of this record may have been created with voice recognition software Level of Care: Express Care Visit Vital Signs Vital signs: Vital Signs Temperature 36.4 C L 09/25/24 12:48 Pulse Rate 68 09/25/24 12:48 Respiratory Rate 16 09/25/24 12:48 Blood Pressure 127/66 09/25/24 12:48 Pulse Oximetry 100 09/25/24 12:48 Oxygen Delivery Room Air 09/25/24 12:48 Temperature 36.4 C L 09/25/24 12:48 Pulse Rate 68 09/25/24 12:48 Respiratory Rate 16 09/25/24 12:48 Blood Pressure 127/66 09/25/24 12:48 Pulse Oximetry 100 09/25/24 12:48 Oxygen Delivery Room Air 09/25/24 12:48 Reviewed MDM - URI/Sore Throat MDM Narrative Medical decision making narrative: Pt well hydrated appearing, in no respiratory distress, hemodynamically stable. Recommend supportive care. The patient is stable at time of discharge the clinical impression was discussed and the patient was given the opportunity to ask questions, which were addressed as completely as possible given the information available at present. Anticipatory guidance and return to care precautions were discussed and the importance of primary care follow-up was stressed and encouraged. The patient voiced understanding of the plan, indications to return, and the need for follow-up. Differential diagnosis considered: Bronchitis, Arboleda virus, strep pharyngitis, allergic rhinitis, upper respiratory tract infection, sinusitis, rhinosinusitis, nasopharyngitis. viral pharyngitis, otitis media, otitis externa, otitis effusion, foreign body, cerumen impaction, viral syndrome, and influenza.? Exam findings show no acute concerns or changes; patient is non-toxic appearing and is in no distress.? Patient is appropriate for outpatient treatment and follow- up.? Medical Records Attestation: I reviewed the patient's medical records. Discharge Plan Discharge Clinical Impression: Upper respiratory infection with cough and congestion Patient Disposition: Home, Self-Care Condition: Stable Instructions: Upper Respiratory Infection (ED) Additional Instructions: Take antibiotic as prescribed. Take steroids in the morning with food. Use inhaler with spacer as needed. Other symptomatic treatments include: -Alternate Tylenol and Motrin per package directions for fever or pain: Tylenol 650-1000mg by mouth every 4-6 hours. Do not exceed 4000mg in 24 hours. Advil (Ibuprofen) 600 mg by mouth every 6 hours. Do not exceed 2400mg in 24 hours. 8 AM: Tylenol 11 AM: Ibuprofen 2 PM: Tylenol 5 PM: Ibuprofen 8 PM: Tylenol 11 PM: Ibuprofen 2 AM: Tylenol 5 AM: Ibuprofen -Antihistamine medication such as Benadryl at night and Zyrtec/Claritin/Mis during the day can help improve symptoms. -Use Flonase twice a day for 5 days then daily to help reduce the inflammation and dry up your sinuses. -You can also use Sudafed or Mucinex. Be sure to drink plenty of water with these medications at least 8 ounces with every dose and it is important to drink 8 to 10 glasses of water per day. Water is a natural decongestant -Eat and drink things that are easy to swallow, like tea or soup, or popsicles. -Oral rinses such as: Salt water gargles and/or may use topical anesthetic (eg. Chloraseptic spray) or lozenges to relieve dryness or throat pain). -Frequent hand washing or hand furniture removalist's assistant is one of the best ways to prevent spread of infection. -Using a vaporizer or humidifier at night will also help thin secretions and help with coughing up phlegm. Call your Primary Care Doctor and make a follow-up appointment in 3 days. If your cough worsens, you develop a fever greater than 103, you develop shaking chills, a fast heartbeat, trouble breathing and/or feel you are are breathing much faster than usual, call your Primary Care Doctor or go to the ER. Patient Language: Burmese Prescriptions: New (DME) Aerochamber MV Spacer See Rx Instructions .Route Qty: 1 0RF Rx Instructions: As directed prednisone 20 mg tablet 40 mg PO DAILY 5 Days Qty: 10 0RF doxycycline monohydrate 100 mg tablet 100 mg PO BID 5 Days Qty: 10 0RF albuterol sulfate 90 mcg/actuation HFA aerosol inhaler 2 puff inhalation QID PRN (Reason: shortness of breath or wheezing) Qty: 6.7 0RF No Action testosterone 1 ml IM WEEKLY Follow-up/Referrals: Allen Bhatt MD [Physician] - 3 Days (Establish care) Stand Alone Forms: Work/School Release IP Time of Disposition: 13:24
== END 2024-09-25 13:36 | disposition home or self-care (01) ==
PROVIDERS: Emergency Provider Nurse Practitioner Family
DX: J06.9 Acute upper respiratory infection, unspecified (principal); R05.9 Cough, unspecified
CPT/HCPCS: 99213; G0463

== ENCOUNTER 2025-01-19 18:27 | Emergency (ER) | payer BC, SELFPAY ==
--- NOTE | 2025-01-19 18:31 | ED_ITS ---
HPI - Burn/Smoke Inhalation General Chief complaint: Skin/Abscess/Foreign Body Stated complaint: Skin Issues Time Seen by Provider: 01/19/25 18:31 Source: patient Mode of arrival: ambulatory Limitations: no limitations History of Present Illness HPI Narrative: Ashu is a 39-year-old male patient presenting to the clinic today with complaints of a sunburn to his head, arms, shoulders, back, abdomen, and feet. He reports he was [place] and did not wear sun screen. Has blister to his arms and legs. Had chills last night. Has been applying aloe sun after care without much relief. 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 Denies any fevers. He denies any chest pain, shortness breath, dizziness, or muscle cramping. Related Data Home Medications ?Medication ?Instructions ?Recorded ?Confirmed ?Last Taken ?Type testosterone 1 ml IM WEEKLY 03/06/24 04/10/24 Unknown History Allergies Allergy/AdvReac Type Severity Reaction Status Date / Time No Known Allergies Allergy Verified 01/19/25 18:29 Review of Systems Review of Systems: Pertinent positives per HPI. Patient denies any fever, chills, rash, headache, visual changes, dizziness, cough, runny nose, sore throat, shortness of breath, chest pain, palpitations, nausea, vomiting, diarrhea, constipation, abdominal pain, or any urinary issues. PMFSH Past Medical History Medical History History of chronic ear drainage History of cholesteatoma Social History Social History Gender identity (if verbalized by the patient): Male Comments At the time of my signature, I reviewed and agree with the nursing past medical, surgical, social, and family history. There is no relevant family history pertinent to the patient complaint. Exam Narrative: General: Well-developed, well nourished, in no apparent distress Head: Normocephalic, atraumatic. Cardio: Regular rate and rhythm, s1 and s2 normal, no murmur appreciated. Resp: Clear to auscultation bilaterally, no rhonchi, rales, wheezing or rubs. Integumentary: [place], warm, and dry, 2nd degree sunburn to bilateral upper arms and shoulders with blistering, 1st degree burn to scalp, back, abdomen, and to the top of his feet. Course Course Emergency Course: Portions of this record may have been created with voice recognition software. Level of Care: Express Care Visit Vital Signs Vital signs: Vital Signs Temperature 37.2 C 01/19/25 18:33 Pulse Rate 91 01/19/25 18:33 Respiratory Rate 18 01/19/25 18:33 Blood Pressure 141/82 H 01/19/25 18:33 Pulse Oximetry 100 01/19/25 18:33 Oxygen Delivery Room Air 01/19/25 18:33 Temperature 37.2 C 01/19/25 18:33 Pulse Rate 91 01/19/25 18:33 Respiratory Rate 18 01/19/25 18:33 Blood Pressure 141/82 H 01/19/25 18:33 Pulse Oximetry 100 01/19/25 18:33 Oxygen Delivery Room Air 01/19/25 18:33 Vital signs reviewed MDM - Burn/Smoke Inhalation MDM Narrative Medical decision making narrative: At the time of visit patient is resting comfortably on the exam table. Patient appears to be nontoxic. Patient is vital signs are are stable. No obvious sign of bacterial infection. Has blistering to his shoulders and upper arms other areas are 1st degree burn Plan: I suspect patient has second-degree and first-degree sunburn. Prescription for Silvadene cream was sent to the pharmacy. Also recommend aloe with lidocaine gel. Watch for signs and symptoms of infection. Work note was given. Supportive measures were discussed with the patient and they voiced understanding discharge instructions and agrees to treatment plan. Return precautions reviewed Differential Diagnosis Differential diagnosis: Likely sunburn and other (Second-degree burn, third- degree burn, cellulitis, bacterial skin infection,) Discharge Plan Discharge Clinical Impression: Sunburn, second degree Patient Disposition: Home Condition: Stable Instructions: Antibiotic Form, Second-Degree Burn (ED) Additional Instructions: Take medications as prescribed-Silvadene cream Increase fluids and stay well hydrated May apply aloe gel with lidocaine to burn as needed May take Tylenol/Motrin as needed for pain or fever Keep burn clean and dry Change any dressings daily unless soiled and need to be change more than once daily If burned is blistering-do not pop the blisters-allow the blisters to pop on their own Watch for signs and symptoms of infection-fever not controlled by Tylenol or Motrin, increase in pain, increase in redness, increase in swelling, streaking, or purulent discharge Follow-up with your primary care doctor in 2-3 days for wound check Go to the emergency room if symptoms worsen Patient Language: Nigerian Prescriptions: New silver sulfadiazine [Silvadene] 1 % cream 1 applic topical DAILY 7 Days Qty: 50 0RF Rx Instructions: apply a 1.5 mm thickness No Action testosterone 1 ml IM WEEKLY (DME) Aerochamber MV Spacer See Rx Instructions .Route Qty: 1 0RF Rx Instructions: As directed albuterol sulfate 90 mcg/actuation HFA aerosol inhaler 2 puff inhalation QID PRN (Reason: shortness of breath or wheezing) Qty: 6.7 0RF Follow-up/Referrals: PHYSICIAN,SENIOR SUPPLIER QUALITY ENGINEER [Primary Care Provider] - Stand Alone Forms: Work/School Release IP Time of Disposition: 18:44 Quality NIHSS Nursing Documentation ED NIHSS nursing documentation: reviewed/agree
--- NOTE | 2025-01-19 18:31 | ED_ITS ---
HPI - Skin/Abscess/Foreign Bdy General Chief complaint: Skin/Abscess/Foreign Body Stated complaint: Skin Issues Related Data Home Medications ?Medication ?Instructions ?Recorded ?Confirmed ?Last Taken ?Type testosterone 1 ml IM WEEKLY 03/06/24 04/10/24 Unknown History Allergies Allergy/AdvReac Type Severity Reaction Status Date / Time No Known Allergies Allergy Verified 01/19/25 18:29 PMFSH Past Medical History Medical History History of chronic ear drainage History of cholesteatoma Social History Social History Gender identity (if verbalized by the patient): Male Discharge Plan Discharge Patient Language: [place] Prescriptions: No Action testosterone 1 ml IM WEEKLY (DME) Aerochamber MV Spacer See Rx Instructions .Route Qty: 1 0RF Rx Instructions: As directed albuterol sulfate 90 mcg/actuation HFA aerosol inhaler 2 puff inhalation QID PRN (Reason: shortness of breath or wheezing) Qty: 6.7 0RF Follow-up/Referrals: PHYSICIAN,GARDENING SUPERVISOR [Primary Care Provider] -
[2025-01-19 18:33] VITALS: BP 141/82; PULSE 91; RESP 18; TEMP 37.2; O2SAT 100
== END 2025-01-19 18:50 | disposition home or self-care (01) ==
PROVIDERS: Emergency Provider Nurse Practitioner Family
DX: L55.1 Sunburn of second degree (principal)
CPT/HCPCS: 99213; G0463

== ENCOUNTER 2025-03-05 13:42 | Emergency (ER) | payer OTHER, BC, SELFPAY ==
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
[2025-03-05 13:43] VITALS: BP 151/90; PULSE 106; RESP 18; TEMP 36.7; O2SAT 98
--- OUTSIDE RECORDS SUMMARY | 2025-03-05 13:46 | XMS_ITS | Clinical Summary ---
Author Organization [facility] Address [address] [place] [address] Care Team Providers Care Switch Box Installer Name Role Phone Unavailable Primary Care Provider Unavailabl e Source Comments [facility],non-owned Affiliates and Associated Physician Practices is amultiple site organization consisting of ambulatory clinics and hospital sitesin [place], [place], [place] and [place]. This disclosure is being madepursuant to the Care Everywhere program and may not contain all information available regarding this patient. Last updated 18.[employer] Allergies No known active allergies Medications * Be aware that medications may not be up to date on this document. Alwaysverify current medications with the patient. No known medications Active Problems Problem Noted Date Diagnosed Date Carrier of Streptococcus 07/19/2020 Tympanic membrane perforation 07/19/2020 Chronic otitis media 07/19/2020 Overview (07/19/2020): For all of the above diagnoses, the patient probably has a long history of middle ear disease and chronic eustachian tube dysfunction which has caused the majority of the left tympanic membrane to retract into the middle ear space and likely is tracking into the epitympanum and may be beyond. This has created a chronic otitis media, chronic mastoiditis, probable ossicular erosion was near maximum conductive hearing loss; also the retraction could be a perforation by now.. patient fails [employer] regulation [place] 40-501 para 2-6, c-1, e1,2,4; f-1,3 and para 2-7. Patient will need EPTS--- I will contact hearing conservation blood bank attendant with this information. I have prescribed Ciprodex drops for the left ear. I explained to the patient that he would need to return home and have surgery and more than likely more than one surgery to control disease before he could re-enlist into the [employer]. 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 This has created a chronic otitis media, chronic mastoiditis, probable ossicular erosion was near maximum conductive hearing loss; also the retraction could be a perforation by now.. patient fails [employer] regulation [place] 40-501 para 2-6, c-1, e1,2,4; f-1,3 and para 2-7. Patient will need EPTS--- I will contact hearing conservation blood bank attendant with this information. I have prescribed Ciprodex drops for the left ear. I explained to the patient that he would need to return home and have surgery and more than likely more than one surgery to control disease before he could re-enlist into the [employer]. 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 12/02/2018 Chronic mastoiditis of left side 12/02/2018 Immunizations Immunization Administration Dates Next Due TDAP (7yrs+) 07/29/2017 Family History Medical History Relation Name Comments Alcohol abuse Father CVA Father Cancer - Other Father Cancer - Prostate Father Lung Disease Father Arthritis - Rheumatoid Mother Depression Mother Hyperlipidemia Mother Hypertension Mother Diabetes Sister Diabetes - Type 2 Sister Eczema Sister Migraine Sister Relation Name Status Comments Father Mother Sister Social History Tobacco Use Types Packs/Day Years Used Date Smoking Tobacco: Never Smokeless Tobacco: Current Chew Tobacco Cessation:Ready to Q uit: Not Asked; Counseling Given: Not Answered Alcohol Use Standard Drinks/Week Comments Yes 0 (1 standard drink = 0.6 oz pur e alcohol) AUDIT-C Answer Date Recorded Frequency of Alcohol Consumption 2-3 times a wee k 08/18/2019 Average Number of Drinks Not on file 020 Frequency of Binge Drinking Not on file 01/2020 Sex and Gender Information Value Date Recorded Sex Assigned at Not on file Legal Sex Male 12:01 AM METAL LEAF [employer]ER Gender Identity Not on file Sexual Orientation Not on file Last Filed Vital Signs Vital Sign Reading Time Taken Comments Blood Pressure 127/83 02/18/2023 1:11 PM CDT Pulse 73 02/18/2023 1:11 PM CDT Temperature 36.3 C (97.4 F) 07/19/2020 10:46 AM METAL LEAF LAYER Respiratory Rate 18 07/29/2017 9:51 AM [employer]AL LEAF [employer]ER Oxygen Saturation 97% 07/29/2017 9:51 AM METAL LEAF L[employer]ER Inhaled Oxygen Concentration - - Weight 69.4 kg (153 lb) 02/18/2023 1:11 PM CDT Height 165.1 cm (5' 5) 02/18/2023 1:11 PM CDT Body Mass Index 25.46 02/18/2023 1:11 PM CDT Plan of Treatment Health Maintenance Due Date Last Done Comments HIV SCREENING 2002 HEPATITIS C SCREENING 03/12/2005 HEPATITIS B VACCINE (1 of 3 - 19+ 3-dose series) 2006 PNEUMOCOCCAL VACCINE (1 of 2 - PCV) 2006 HPV VACCINE (1 - 3-dose SCDM series) 2014 COVID-19 VACCINE ( - 2023-2 5 season) 2024 DEPRESSION SCREENING 07/12/2024 INFLUENZA VACCINE (#1) 2025 DTAP/TDAP/TD VACCINES (2 - T d or Tdap) 07/29/2027 07/29/2017 ZOSTER VACCINE (1 of 2) 2037 HIB VACCINE Aged Out No longer eligi ble based on patient's age to complete this topic MENINGOCOCCAL (Group B) VACC INE SHARED DECISION-MAKING Aged Out No longer eligibl e based on patient's age to complete this topic MENINGOCOCCAL GROUPS A/C/Y/W VACCINE Aged Out No longer eligible b ased on patient's age to complete this topic Insurance [facility] PAYOR GENERIC
[2025-03-05 15:22] VITALS: BP 125/84; PULSE 88; RESP 15; TEMP 36.6; O2SAT 97
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
--- OUTSIDE RECORDS SUMMARY | 2025-03-05 15:45 | XMS_ITS | Clinical Summary ---
Author Organization [facility] Address [address] [place] [address] Care Team Providers Care Informatics Pharmacist Name Role Phone Unavailable Primary Care Provider Unavailabl e Source Comments [facility],non-owned Affiliates and Associated Physician Practices is amultiple site organization consisting of ambulatory clinics and hospital sitesin [place], [place], [place] and [place]. This disclosure is being madepursuant to the Care Everywhere program and may not contain all information available regarding this patient. Last updated 18.[employer] Allergies No known active allergies Medications * [...] need EPTS--- I will contact hearing conservation mental health program manager with this information. I have prescribed Ciprodex [...] need EPTS--- I will contact hearing conservation mental health program manager with this information. 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
== END 2025-03-05 15:45 | disposition home or self-care (01) ==
LOC: ANHED 15:43
PROVIDERS: Emergency Provider Nurse Practitioner Family
DX: S13.4XXA Sprain of ligaments of cervical spine, initial encounter (principal); V49.40XA Driver injured in collision with unspecified motor vehicles in traffic accident, initial encounter
CPT/HCPCS: 70450; 72125; 99284

== ENCOUNTER 2025-06-25 11:08 | Emergency (ER) | payer BC, SELFPAY ==
[2025-06-25 11:14] VITALS: BP 140/65; PULSE 89; RESP 16; TEMP 37.2; O2SAT 100
--- NOTE | 2025-06-25 11:49 | ED.SKABFB ---
HPI - Skin/Abscess/Foreign Bdy General Chief complaint: Skin/Abscess/Foreign Body Stated complaint: SPOT ON L ARM Time Seen by Provider: 06/25/25 11:25 Source: patient and RN notes reviewed Mode of arrival: ambulatory Limitations: no limitations History of Present Illness HPI narrative: 40-year-old male patient presents Express Care complaining of a lump on his left arm. Patient noticed to 2 days ago. Patient currently on doxycycline for acne from his testosterone shots he gets at [facility]. Patient reports he popped pustule yesterday, says that remains unchanged but it feels warm around the area. Patient reports mild discomfort to the area. 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 Patient denies any fevers, body aches, chills, nausea, vomiting, or other symptoms. Patient denies any injuries. Related Data Home Medications ?Medication ?Instructions ?Recorded ?Confirmed ?Last Taken ?Type testosterone 1 ml IM WEEKLY 03/06/24 06/25/25 Unknown History Allergies Allergy/AdvReac Type Severity Reaction Status Date / Time No Known Allergies Allergy Verified 06/25/25 11:09 Review of Systems Review of Systems: CONSTITUTIONAL: Denies fever, chills, or sweats. EYES: Denies visual changes, redness, or discharge. ENT: Denies rhinorrhea, congestion, sore throat, or otalgia. CARDIOVASCULAR: Denies chest pain, palpitations, or edema. RESPIRATORY: Denies cough or dyspnea. GASTROINTESTINAL: Denies abdominal pain, nausea, vomiting, or diarrhea. GENITOURINARY: Denies dysuria or hematuria. SKIN: Denies rash or itching. Positive for wound. MUSCULOSKELETAL: Denies back pain, joint pain, or myalgia. NEUROLOGIC: Denies headache, numbness, or weakness. PSYCHIATRIC: Denies anxiety or depression. All other systems reviewed are negative, except as documented in HPI. [facility] Past Medical History Medical History History of chronic ear drainage History of cholesteatoma Social History Social History Gender identity (if verbalized by the patient): Male Comments At the time of my signature, I reviewed and agree with the nursing past medical, surgical, social, and family history. There is no relevant family history pertinent to the patient complaint. Exam Narrative: GENERAL: This is a well-nourished, well-developed adult, in no apparent distress. They are non ill-appearing, nontoxic appearing. HEAD: normocephalic, atraumatic. EYES: Sclera clear/white. Conjunctiva normal. Vision is grossly intact. Extraocular movements intact EARS: External ears normal, Hearing grossly intact. NOSE: External nose normal THROAT: Mucous membranes moist, NECK: Neck supple, CARDIOVASCULAR: Regular rate and rhythm RESPIRATORY: Respiratory rate normal, respiratory effort nonlabored, no respiratory distress SKIN: warm, Dry, intact with no suspicious lesions or rash, good texture and turgor. NEURO: awake, alert, and oriented to person, place and time. There were no obvious focal neurologic abnormalities. EXTREMITIES: Left upper: Erythematous pustule to the medial mid upper arm. It is measuring 1 cm x 1 cm, is mildly tender to palpate. Surrounding erythema present. No area of fluctuance, no induration, no exudate. BACK: Nontender without deformity. Course Course Level of Care: Express Care Visit Vital Signs Vital signs: Vital Signs Temperature 98.9 F 06/25/25 11:14 Pulse Rate 89 06/25/25 11:14 Respiratory Rate 16 06/25/25 11:14 Blood Pressure 140/65 06/25/25 11:14 Pulse Oximetry 100 06/25/25 11:14 Oxygen Delivery Room Air 06/25/25 11:14 Temperature 98.9 F 06/25/25 11:14 Pulse Rate 89 06/25/25 11:14 Respiratory Rate 16 06/25/25 11:14 Blood Pressure 140/65 06/25/25 11:14 Pulse Oximetry 100 06/25/25 11:14 Oxygen Delivery Room Air 06/25/25 11:14 [facility] Narrative Medical decision making narrative: Appears patient may have a folliculitis, he is already on doxycycline. No evidence of abscess formation. Will add cephalexin symptom with mupirocin ointment. Discussed physical exam findings. Advised supportive measures and signs/symptoms to go to the ER. Pt is appropriate for outpt treatment and f/u. Differential Diagnosis Differential Diagnosis: Cellulitis, folliculitis, pustule, acne Critical Care Time Critical Care Time Critical Care Time: No Discharge Plan Discharge Clinical Impression: Folliculitis Patient Disposition: Home Condition: Stable Instructions: Antibiotic Form, Folliculitis (ED) Additional Instructions: Clean with soap and water only; Avoid using alcohol and peroxide. Elevate the affected area if possible You may take ibuprofen 600 mg to 800 mg every 6-8 hours. Do not exceed more than 800 mg of ibuprofen per dose. Do not exceed more than 3200 mg ibuprofen in a day. You may take up to 1000 mg Tylenol every 6-8 hours. Do not exceed 1000 mg per dose, do exceed more than 4000 mg of Tylenol in a day. Apply moist heat 3-4 times daily for 10-15 minutes help promote drainage Take antibiotic until it's gone. Apply antibiotic ointment as direct Please schedule a follow up visit with your personal physician for further evaluation and treatment within 3-5days Go to the ER if if you developed worsening redness, swelling, pain, green/yellow drainage, fevers, eczema chills, or any serious concerns. Patient Language: Mauritian Prescriptions: New cephalexin 500 mg capsule 500 mg PO Q6H 7 Days Qty: 28 0RF mupirocin calcium 2 % cream 1 applic topical BID 7 Days Qty: 30 0RF Rx Instructions: Apply to affected area No Action testosterone 1 ml IM WEEKLY (DME) Aerochamber MV Spacer See Rx Instructions .Route Qty: 1 0RF Rx Instructions: As directed Follow-up/Referrals: PHYSICIAN,SEARCH COORDINATOR [Primary Care Provider, Internal Medicine] Time of Disposition: 11:46
== END 2025-06-25 11:50 | disposition home or self-care (01) ==
DX: L73.9 Follicular disorder, unspecified (principal)
CPT/HCPCS: 99213; G0463